=== PATIENT | female | born 1960 | race Caucasian/White ===

== ENCOUNTER 2023-12-26 11:25 | Inpatient (IN) | payer BC ==
[~2023-12-26] VITALS: Ht 152.4 cm; Wt 93.0 kg
[2023-12-26 12:18] LABS: ERYTHROCYTE SEDIMENTATION RATE 7 MM/HR (0-20)
[2023-12-26 12:21] LABS: BASOPHILS # (AUTO) 0.1 K/uL (0.0-0.2); BASOPHILS % (AUTO) 1.2 % (0.0-2.0); EOSINOPHILS # (AUTO) 0.1 K/uL (0.0-0.4); EOSINOPHILS % (AUTO) 2.1 % (0.0-4.0); HEMATOCRIT 42.8 % (36-48); HEMOGLOBIN 14.6 g/dL (12.0-16.0); LYMPHOCYTES # (AUTO) 3.1 K/uL (1.0-5.5); MEAN CORPUSCULAR HEMOGLOBIN 29 pg (27-31); MEAN CORPUSCULAR HGB CONC 34 % (32-36); MEAN CORPUSCULAR VOLUME 84 fL (79.0-98.0); MONOCYTES # (AUTO) 0.5 K/uL (0.0-1.0); MONOCYTES % (AUTO) 7.4 % (1.7-9.3); NEUTROPHILS # (AUTO) 2.9 K/uL (1.8-7.7); NEUTROPHILS % (AUTO) 43.3 % (40.0-70.0); PLATELET COUNT (AUTO) 217 K/uL (130-430); RED BLOOD CELL COUNT(AUTO) 5.09 MIL/uL (4.2-6.2); WHITE BLOOD COUNT (AUTO) 6.8 K/uL (4.8-10.8)
[2023-12-26] MEDS ORDERED: ONDANSETRON HCL 4 MG/2 ML VIAL IVP PRN (13:00)
[2023-12-26] MEDS ORDERED: MEPERIDINE 50 MG/ML VIAL IVP PRN (13:00)
[2023-12-26] MEDS: LR 1,000 ML IV SCH (13:00)
[2023-12-26] MEDS ORDERED: MEPERIDINE HCL/PF 25 MG/ML DISP.SYRIN IVP PRN (13:00)
[2023-12-26] MEDS ORDERED: LR 1,000 ML IV.SOLN IV ONE (13:16)
[2023-12-26] MEDS ORDERED: ALBUTEROL SULFATE 0.083% 2.5 MG/3 ML VIAL.NEB INH ONE (13:16)
[2023-12-26] MEDS ORDERED: ONDANSETRON HCL 4 MG/2 ML VIAL ONE (13:16)
[2023-12-26] MEDS ORDERED: SUCCINYLCHOLINE CHLORIDE 20 MG/ML(QUELICIN) ONE (13:16)
[2023-12-26] MEDS ORDERED: CEFAZOLIN 2 GM IVPB PREMIX 50 ML IV ONE (13:16)
[2023-12-26] MEDS ORDERED: BUPIVACAINE /PF 0.25% 30 ML VIAL INJ ONE (13:16)
[2023-12-26] MEDS ORDERED: NS 250 ML IV.SOLN IV ONE (13:16)
[2023-12-26] MEDS ORDERED: METOPROLOL TARTRATE 5 MG/5 ML VIAL ONE (13:16)
[2023-12-26] MEDS ORDERED: fentaNYL CITRATE/PF 100 MCG/2 ML AMP ONE (13:16)
[2023-12-26] MEDS ORDERED: LABETALOL 100 MG/ 20ML VIAL ONE (13:16)
[2023-12-26] MEDS ORDERED: MIDAZOLAM HCL 5 MG/ML VIAL (VERSED) IV ONE (13:16)
[2023-12-26] MEDS ORDERED: SUGAMMADEX SODIUM 200 MG/2 ML VIAL IV ONE (13:16)
[2023-12-26] MEDS ORDERED: PROPOFOL 200MG/ 20ML VIAL (DIPRIVAN) IV ONE (13:16)
[2023-12-26] MEDS ORDERED: ROCURONIUM BROMIDE 10 MG/ML (ZEMURON) ONE (13:16)
[2023-12-26] MEDS ORDERED: METOCLOPRAMIDE HCL 10 MG/2 ML VIAL ONE (13:16)
[2023-12-26] MEDS ORDERED: DEXAMETHASONE SOD PHOSPHATE 4 MG/ML VIAL ONE (13:16)
[2023-12-26] MEDS ORDERED: SEVOFLURANE 15 MIN GAS INH ONE (13:16)
[2023-12-26] MEDS ORDERED: VANCOMYCIN HCL 1000 MG/VIAL IV ONE (13:16)
[2023-12-26] MEDS ORDERED: ACETAMINOPHEN 325 MG TABLET PO PRN ×2 (14:45→15:45)
[2023-12-26] MEDS ORDERED: HYDROcodone/ACETAMIN 5-325 MG TAB (NORCO/ VICODIN) PO PRN (15:45)
[2023-12-26 15:57] VITALS: BP_SYST 141; PULSE 89; RESP 18; TEMP 98.4; O2SAT 94
[2023-12-26 15:58] VITALS: O2SAT 94
[2023-12-26] MEDS: MORPHINE 4 MG INJ. 4 MG/ML VIAL IVP PRN (16:22)
[2023-12-26 16:27] VITALS: BP_SYST 141; PULSE 86; RESP 16; TEMP 98; O2SAT 86
[2023-12-26] MEDS: GABAPENTIN 100 MG CAPSULE PO ONE (16:30)
[2023-12-26 16:33] VITALS: BP_SYST 141; PULSE 89; RESP 17; TEMP 98.4
[2023-12-26] MEDS ORDERED: LIP20 PO (16:47)
[2023-12-26] MEDS ORDERED: OLME20TA74 PO (16:47)
[2023-12-26] MEDS ORDERED: CELE400C PO (16:47)
[2023-12-26 20:00] VITALS: BP_SYST 121; PULSE 87; RESP 16; TEMP 97.9; O2SAT 95
[2023-12-26] MEDS: ATORVASTATIN 20 MG TABLET PO SCH (20:50)
[2023-12-26] MEDS: ceFAZolin SODIUM 1 GM in D5W 100 ML IV ONE (20:50)
[2023-12-26] MEDS: GABAPENTIN 100 MG CAPSULE PO SCH (20:51)
[2023-12-26] MEDS: KETOROLAC TROMETHAMINE 30 MG VIAL IVP SCH (21:29)
[2023-12-27 08:00] VITALS: O2SAT 95
[2023-12-27 08:15] VITALS: BP_SYST 108; PULSE 87; RESP 16; TEMP 97.5; O2SAT 95
[2023-12-27] MEDS: LOSARTAN POTASSIUM 50 MG TABLET (COZAAR) PO SCH (09:00)
[2023-12-27] MEDS: AMOXICILLIN/POTASSIUM CLAV 875 MG TABLET PO ONE (11:42)
[2023-12-27 12:00] VITALS: BP_SYST 105; PULSE 67; RESP 14; TEMP 97.9; O2SAT 95
[2023-12-27 16:00] VITALS: BP_SYST 108; PULSE 71; RESP 16; TEMP 98.6; O2SAT 95
[2023-12-27 20:00] VITALS: O2SAT 96
[2023-12-27] MEDS: AMOXICILLIN/POTASSIUM CLAV 875 MG TABLET PO SCH (21:21)
[2023-12-28] VITALS (7 sets, daily range): BP systolic 110–130; PULSE 64–74; RESP 16–20; TEMP 97–98.5; O2SAT 95–97
[2023-12-28] MEDS: HYDROcodone/ACETAMIN 10-325 MG TAB PO PRN (08:45)
[2023-12-28] MEDS: oxyCODONE HCL 5 MG TABLET PO PRN (10:56)
[2023-12-29 01:30] VITALS: BP_SYST 130; PULSE 72; RESP 18; TEMP 97.3; O2SAT 97
[2023-12-29] MEDS: predniSONE 20 MG TABLET PO ONE (06:24)
[2023-12-29 08:00] VITALS: BP_SYST 119; PULSE 78; RESP 19; TEMP 97.5; O2SAT 97
[2023-12-29 12:00] VITALS: BP_SYST 138; PULSE 69; RESP 20; TEMP 97.3; O2SAT 97
[2023-12-29 16:22] VITALS: BP_SYST 150; PULSE 92; RESP 19; TEMP 98.2; O2SAT 96
== END 2023-12-29 17:10 | disposition home or self-care (01) | DRG 858 ==
LOC: SDS 11:25 → SMU 11:38 → SDS 14:56 → SMU 15:55
PROVIDERS: ADMIT Orthopaedic Surgery Sports Medicine; ATTEND Orthopaedic Surgery Sports Medicine
PROC: 0JBK0ZZ Excision of Left Hand Subcutaneous Tissue and Fascia, Open Approach (ICD-10-PCS; principal; 2023-12-26 13:18)
DX: T81.40XA Infection following a procedure, unspecified, initial encounter (principal); G56.01 Carpal tunnel syndrome, right upper limb; Z79.899 Other long term (current) drug therapy; Y83.8 Other surgical procedures as the cause of abnormal reaction of the patient, or of later complication, without mention of misadventure at the time of the procedure; Z88.8 Allergy status to other drugs, medicaments and biological substances
CPT/HCPCS: 36415; 71045; 85025; 85651; 87081; 93005; J0330; J0690; J1100; J1885; J2250; J2270; J2405; J2704; J2765; J3010; J3370; J3490; J7050; J7060; J7120; J7512